=== PATIENT | male | born 1990 | race African-American/Black ===

== ENCOUNTER 2024-06-06 02:53 | Emergency (ER) | payer MEDICAID ==
[~2024-06-06] VITALS: Ht 170.2 cm; Wt 55.0 kg
[2024-06-06 03:06] VITALS: TEMP 98.2; O2SAT 100
[2024-06-06] MEDS ORDERED: OFLO5DRO LEFTEYE (04:31)
[2024-06-06 04:45] VITALS: BP 112/71; PULSE 85; RESP 16; O2SAT 99
== END 2024-06-06 04:45 | disposition home or self-care (01) ==
LOC: ER 02:53
DX: S05.02XA Injury of conjunctiva and corneal abrasion without foreign body, left eye, initial encounter (principal); X58.XXXA Exposure to other specified factors, initial encounter; Y93.89 Activity, other specified; Y92.89 Other specified places as the place of occurrence of the external cause; Y99.8 Other external cause status
CPT/HCPCS: 99283